=== PATIENT | male | born 1975 | race Native Hawaiian/Other Pacific Islander ===

== ENCOUNTER 2020-07-22 14:12 | Emergency (ER) | payer OTHER ==
[~2020-07-22] VITALS: Ht 182.9 cm; Wt 94.3 kg
[2020-07-22 14:28] VITALS: TEMP 99
[2020-07-22 15:20] VITALS: BP 118/78
== END 2020-07-22 15:23 ==
LOC: ED 14:12
DX: K40.90 Unilateral inguinal hernia, without obstruction or gangrene, not specified as recurrent (principal); K42.9 Umbilical hernia without obstruction or gangrene
CPT/HCPCS: 99281